=== PATIENT | male | born 1970 | race Caucasian/White ===

== ENCOUNTER 2020-05-12 11:36 | Emergency (ER) | payer SELFPAY ==
[2020-05-12 11:49] VITALS: BP 163/100; PULSE 78; RESP 18; TEMP 36.1; O2SAT 97
--- NOTE | 2020-05-12 13:00 | W.ED.GENAD ---
Discharge Plan Disposition Patient Disposition: HOME Condition: Stable Discharge Details Clinical Impression: Tetanus-diphtheria vaccination administered at current visit, Intentional self-harm Primary Care Provider: Unknown,Unknown ED Provider: Lauro Garcia Home Meds and New Rx's Prescriptions: No Action No Known Home Meds RF: 0 Discharge Instructions Instructions: Diphtheria/Tetanus Vaccine (Injection) Additional Instructions: Tetanus has been updated. At this time you denie any suicidal or homicidal ideation. You report feeling safe. I have placed you on the care management list to help get you a outpatient primary care provider and get you resources such as a counselor and hooked back in with [facility] human service team. Please watch for new or worsening symptoms and return to the ER for any concerns. Medical Decision Making 49-year-old gentleman presenting requesting a tetanus shot. He admits to self-harm a couple days ago but denies any suicidal or homicidal ideations. He feels safe. He does admit to drinking alcohol daily basis but is not interested in detox. At this time he has a safe place to go home, his girlfriend is willing to take him home his current condition. He is open to getting outpatient primary care provider and resources for mental health through the [facility] human services team but does not want to wait in the ER for this. Patient is awake, alert, although admits to drinking alcohol today appears to be capable of making her own decisions. I will update his tetanus status today. We will also put him on the care management list to help expedite outpatient primary care and mental health follow-up. Patient is appreciative of this plan, has no additional questions or concerns and would like to be discharged. HPI General Mode of arrival: ambulatory. Date/Time Provider Initiated Documentation: 05/12/20 12:19. Limitations to Documentation: no limitations. Information obtained by: patient. HPI Narrative: This is a 49-year-old gentleman with what he describes as a psychiatric past medical history, unable to tell me his exact diagnosis. He denies any suicidal or homicidal ideation, he reports feeling safe at this time. He states that after he got out of his last relationship and in with his new girlfriend, they decided to stop all of his medications and try something new. He openly admits to drinking alcohol and believes that legally he would be intoxicated at this time. He denies any drug use. He states that 2 or 3 days ago he cut his left forearm with a knife to relieve some stress, not to kill himself. He now believes that he is likely due for a tetanus shot and is coming to the ER with requesting a tetanus shot as his primary complaint. He is also open to getting a new primary care doctor and establishing outpatient mental health resources but does not want to talk to anyone here in the ER or wait here any longer than he has to. He denies any recent illness or trauma. Related Data Home Medications Medication Instructions Recorded Confirmed Unknown [No Known Home Meds] 05/12/20 05/12/20 Allergies Allergy/AdvReac Type Severity Reaction Status Date / Time No Known Allergies Allergy Unverified 05/12/20 11:58 General Stated Complaint: Laceration MICHELLE: 3 Review of Systems Constitutional Constitutional: Denies fatigue, Denies fever(s) and Denies headache(s) ENT Ears, Nose, Mouth, and Throat: Denies headache(s) Cardiovascular Cardiovascular: Denies chest pain and Denies dyspnea Respiratory Respiratory: Denies cough and Denies dyspnea Gastrointestinal Gastrointestinal: Denies abdominal pain, Denies nausea and Denies vomiting Musculoskeletal Musculoskeletal: Denies back pain Neurologic Neurologic: Denies headache(s) Psychiatric Psychiatric: Reports anxiety, Reports irritability, Denies homicidal ideation and Denies suicidal ideation Endocrine Endocrine: Denies fatigue [facility] Social History Smoking/Tobacco Use Status: Current every day Tobacco Type: cigarettes Smoking risk assessment performed?: Yes Alcohol Intake: current Alcohol Intake frequency: 3 or more drinks per day Alcohol type: beer Substance use type: marijuana Details: admits to 12-30 peers per day on average Do you feel safe at home: Yes Do you feel safe in your relationship?: Yes Additional Social history: lives with female friend Exam Const General: cooperative, healthy appearing, comfortable and no acute distress Orientation: alert, awake and oriented x3 HENMT Head: normal to inspection, normocephalic and atraumatic Eyes Conjunctivae: conjunctivae normal Sclera: sclerae normal Neck Neck: normal visual inspection, full ROM, trachea midline and supple Resp Effort & Inspection: normal respiratory effort and able to speak in complete sentences Auscultation: clear to auscultation bilaterally Cardio Rate: regular rate Rhythm: regular rhythm GI Palpation: soft and nontender Skin General skin exam: no rashes or lesions noted Neuro General: patient alert, patient awake, patient oriented x3, moves all extremities and no focal motor deficits Cranial Nerves: CN's II-XI intact bilaterally Cognition: normal cognition Speech: speech normal Gait: normal gait Motor: muscle tone normal throughout and strength 5/5 throughout Sensory Exam: no sensory deficits noted Extrem General: full ROM and capillary refill normal Right upper extremity: normal to inspection, full ROM and normal capillary refill Right lower extremity: normal to inspection, full ROM and normal capillary refill Left lower extremity: normal to inspection, full ROM and normal capillary refill Other: Left forearm with a well-healing horizontal laceration approximately 2 cm in nature. There is no tenderness, warmth, erythema, induration or fluctuance. No signs of secondary infection such as cellulitis or abscess. Neuro, vascular, tendon intact Psych Appearance: disheveled Mental Status: mental status grossly normal Speech and Movement: speech and movement normal Mood: congruent mood Affect: normal affect Attitude: cooperative Thought Process: normal Thought Content: normal, no homicidality and suicidality Insight: fair Judgment: fair Course Vital Signs Vital signs: Vital Signs Temperature 36.1 C L 05/12/20 11:49 Pulse 78 05/12/20 11:49 Respiratory Rate 18 05/12/20 11:49 Blood Pressure 163/100 H 05/12/20 11:49 Pulse Oximetry 97 05/12/20 11:49 Temperature 36.1 C L 05/12/20 11:49 Temperature Source Skin 05/12/20 11:49 Pulse 78 05/12/20 11:49 Respiratory Rate 18 05/12/20 11:49 Respiratory Effort 05/12/20 11:51 Blood Pressure 163/100 H 05/12/20 11:49 Blood Pressure Position Sitting 05/12/20 11:49 Pulse Oximetry 97 05/12/20 11:49 Oxygen Delivery Method Room Air 05/12/20 11:49 Oxygen Flow Rate 0 05/12/20 11:49 Pain Level 0 05/12/20 11:49
[2020-05-12 13:09] VITALS: BP 145/90; PULSE 78; RESP 18; TEMP 36.1; O2SAT 97
--- NOTE | 2020-05-12 14:29 | NUR.NOTE ---
Referral to Care Management to establish pcp and [facility].Nursing Note:
== END 2020-05-12 13:10 | disposition home or self-care (01) ==
PROVIDERS: Emergency Provider Physician Assistant
DX: S51.812A Laceration without foreign body of left forearm, initial encounter (principal); X78.1XXA Intentional self-harm by knife, initial encounter; F10.10 Alcohol abuse, uncomplicated
CPT/HCPCS: 90471; 99284; 99283